=== PATIENT | male | born 1960 | race Caucasian/White ===

== ENCOUNTER → 2018-03-19 16:35 | Outpatient (CLI) | payer OTHER, SELFPAY ==
--- NOTE | 2018-03-19 17:28 | DI.RAD.S_ITS ---
PROCEDURE: XR CHEST 2V INDICATIONS: PRE OPERATIVE TECHNIQUE: 2 views of the chest were acquired. COMPARISON: None. FINDINGS: Surgical changes and devices: None. Lungs and pleura: No pleural effusions or pneumothorax. Lungs are clear. Mediastinum: Mediastinal contours are normal. Heart size is normal. Bones and chest wall: No suspicious bony abnormalities. Soft tissues appear unremarkable. IMPRESSION: Reduced inspiration, no acute disease. Surgical clips over the epigastrium from the past, no comparisons. Dictated by: Ky Davis M.D. on 03/20/2018 at 9:28 Approved by: Ky Davis M.D. on 03/20/2018 at 9:28
[2018-03-19 17:33] LABS: INR 1.4 (0.9-1.3)
[2018-03-19 18:04] LABS: Add Manual Diff / Slide Review NO; Basophils Percent Auto 0.7 % (0-2); Eosinophils Percent Auto 2.1 % (2-4); Hematocrit 36.5 % (41-53); Lymphocytes Percent Auto 40.7 % (25-40); Mean Corpuscular HGB Conc 32.9 % (30-36); Mean Corpuscular Hemoglobin 27.7 PG (26-34); Mean Corpuscular Volume 84.2 fL (80-100); Monocytes Percent Auto 9.1 % (3-14); Neutrophils Absolute Auto 4000 /uL (3000-5900); Neutrophils Percent Auto 47.4 % (50-75); Platelet Count 269 X10^3/uL (150-400); Red Blood Cell Count 4.34 X10^6/uL (4.5-5.9); White Blood Cell Count 8.4 X10^3/uL (4.5-11.0)
[2018-03-19 18:27] LABS: Alanine Aminotransferase 27 IU/L (21-72); Albumin 4.1 g/dL (3.5-5.0); Albumin Globulin Ratio 1.2 (1.0-2.8); Alkaline Phosphatase 73 U/L (38-126); Aspartate Aminotransferase 28 IU/L (17-59); BUN Creatinine Ratio 23.1 (6-22); Bilirubin Total 0.3 mg/dL (0.2-1.3); Blood Urea Nitrogen 30 mg/dL (9-20); Calcium 9.2 mg/dL (8.4-10.2); Carbon Dioxide 21 mmol/L (22-32); Chloride 108 mmol/L (98-107); Estimated Glomerular Filt Rate 56.7 mL/min (>60); Globulin 3.3 g/dL (1.7-4.1); Glucose 97 mg/dL (70-100); HEMOLYSIS < 15 (0-50); Potassium 4.6 mmol/L (3.4-5.1); Sodium 139 mmol/L (137-145); Total Protein 7.4 g/dL (6.3-8.2)
== END ==
PROVIDERS: Visit Provider Dentist Oral and Maxillofacial Surgery
DX: K50.819 Crohn's disease of both small and large intestine with unspecified complications (principal); E44.0 Moderate protein-calorie malnutrition; F43.0 Acute stress reaction; Z01.818 Encounter for other preprocedural examination
CPT/HCPCS: 36415; 71046; 80053; 85025; 85610; 93005

== ENCOUNTER 2018-03-25 06:13 | Day surgery (SDC) | payer OTHER, SELFPAY ==
[2018-03-20 12:16] VITALS: BMI 25.4
[2018-03-25] VITALS (11 sets, daily range): BP systolic 107–127; BP diastolic 60–81; PULSE 60–98; RESP 12–20; TEMP 36.4–37.5; O2SAT 94–100; BMI 24.7
[2018-03-25] MEDS: LACTATED RINGERS 1,000 ML 42 ML IV ×2 (06:45→09:51)
[2018-03-25] MEDS: OXYMETAZOLINE NASAL SPRAY 15 ML 2 SPRAYS NASAL ×2 (07:45→08:55)
[2018-03-25] MEDS: CEFAZOLIN 2 GM/100 ML FROZ.PIGGY IV (07:58)
[2018-03-25] MEDS: LIDOCAINE 2% W/EPI INJ 20 ML INJ (08:00)
[2018-03-25] MEDS: BUPIVACAINE 0.5% W/ EPI (PF) VIAL 30 ML INJ (08:00)
[2018-03-25] MEDS: ACETAMINOPHEN IV 1,000 MG/100 ML VIAL 400 MG IV (08:40)
--- NOTE | 2018-03-25 09:57 | SUR.OPER ---
Supine on padded OR bed, head on sona donut, arms tucked bilaterally, X1 pillow under knees, legs uncrossed, safety belt at thigh, tape over blanket over lower legs.
--- NOTE | 2018-03-25 11:34 | SUR.PHASEI ---
DR RUBIN IN TO SEE PT, GAUZE REMOVED FROM MOUTH, DENTURES PUT IN BY DR RUBIN, PT TOLERATING SIPS OF WATER
[2018-03-25] MEDS: fentaNYL 100 MCG/2 ML INJ 50 MCG IV (11:35)
[2018-03-25] MEDS: HYDROCODONE/ACET 5/325 TABLET 2 TAB PO (11:48)
--- NOTE | 2018-03-26 14:42 | OP_ITS ---
DATE OF SERVICE: 03/25/2018 PREOPERATIVE DIAGNOSES: 1. Missing teeth. 2. Recurrent caries and fractured teeth with history of pain and infection. POSTOPERATIVE DIAGNOSES: 1. Missing teeth. 2. Recurrent caries and fractured teeth with history of pain and infection. OPERATIVE PROCEDURES PERFORMED: 1. Placement of dental implants in the areas of teeth #13, #21, #24, and #28. 2. Alveolar bone reduction in the mandible to accommodate dental implants. 3. Extraction of all remaining teeth. SURGEON: Stanley Teague DMD ANESTHESIA: General anesthesia via oral endotracheal tube. ESTIMATED BLOOD LOSS: 100 cc. IV FLUIDS: 1 L lactated Ringer solution. INDICATIONS FOR OPERATIVE PROCEDURE: Oscar Leo is a 57-year-old male who presented to our office with failing teeth. He has had several missing teeth and, unfortunately, due to his severe Crohn disease and chronic use of oral steroid medications as well as immunosuppressant therapy, his teeth have continued to deteriorate and fail and cause him recurrent infections. He has had a very difficult time maintaining weight due to underlying gastrointestinal disease and the chronic pain from his teeth as he's had a very hard time with mastication of foods. He presented to my office upon referral of his dentist for further evaluation and treatment, and we determined an appropriate treatment plan would be to place dental implants and remove his remaining teeth. Oscar had dentures fabricated to assist him with the healing period before they can be attached to his dental implants. Consent was obtained to place dental implants and remove his remaining teeth was made. He would have dentures that would be retained by his implants to assist with mastication of foods and provide him with adequate function. DESCRIPTION OF OPERATIVE PROCEDURE: Oscar Leo was identified in the preoperative waiting area and brought to operating theater #1 at [facility]. He was placed in supine position on the operating room table. Intravenous medications were administered. The patient was intubated nasally without any complication. Attention was then directed at placing a throat pack. A throat pack was placed. Approximately 13 mL of 2% lidocaine with 1:100,000 epinephrine was administered as a bilateral inferior alveolar nerve block and infiltration to the buccal vestibula. After adequate anesthesia was obtained, attention was directed at using the implant guides to locate implant placement. Once this was done, the crowns were removed from the teeth. The implant osteotomies were initiated. Implant guides were then removed, and attention was then directed at extracting the remaining teeth. Attention first was placed along the maxillary arthroscopic, where teeth #2, #11, #12, #13, and #15 were extracted. It was felt the incision was made around the teeth. The teeth were luxated and removed. Surgical drill was used to remove residual root tips and then dissection of the teeth appropriately. The teeth were also removed using a periotome and a bone rongeur to remove bone as indicated. After the maxillary teeth were removed, the sites were curetted and rinsed out thoroughly. Attention was then directed at placing implant #13 . Using the Scott Active tapered implant protocol, osteotomies were initiated and completed in the area of #13 to depth of 13 mm. A 4.3 x 13-mm Scott Active implant was placed at a torque value greater than 35 Ncm. The implant was stable. A cover screw was then placed over the top of the implant. Attention was then directed at placing 3-0 chromic sutures to reapproximate soft tissue. Gelfoam was placed into the socket as well to protective signal installer helper in hemostasis. Attention was then directed at the mandible. Again, implant surgical guide was inserted. Initial osteotomies were started to locate where the implants would be placed. Attention was then directed at surgical incision around the remaining teeth. Remaining teeth #21, #22, #27, #28, and #30 were then removed. Using surgical bur, under copious irrigation, bone was removed adequately to allow removal of the teeth without disruption of the facial bone. The sockets were curetted and irrigated and suctioned dry. After the teeth were removed, the surgical implant guide was then inserted again and the implant osteotomies were initiated. Verification then of the mental nerve bilaterally was also made to prevent injury to the neurovascular bundle. Once this was verified, the implant osteotomies with the military pilot drill were completed to demarcate the location of the future implants. Now, using a reciprocating saw, under copious irrigation and with oval round bur and bone rongeur, alveolectomy was performed as well as removal of the buccal exostoses along the fascial aspect of the mandible. Using the oval bur and the saw, a malleable retractor and seldin retractor were used to help protect the soft tissues to minimize soft tissue trauma with these instruments. Approximately 6 mm of bone was removed with these instruments. Once this was done, then the implant osteotomies again were performed to the appropriate size and depth following the Scott Active protocol. These were all performed under copious irrigation. Attention was then directed at inserting dental implants. In the #24 location, a 3.5 x 13-mm implant was inserted. It was stable. A healing abutment was placed that was 3.6 x 5 mm in size. Attention was then directed to the implant osteotomies for teeth #21 and #28. Again, a 4.3 x 13-mm implant was placed in both of these locations. A healing abutment measuring 5 x 5 mm was placed in both these locations as well. All 3 implants of the mandibular were torque degree of greater than 35 Ncm. Prior to placing of the healing abutment, a bone union contract representative was used to remove any excess bone all around the edges of the implants. Once this was done, the sites were thoroughly irrigated and suctioned dry. The wound edges were then reapproximated using 3-0 Vicryl suture as well as 3-0 chromic gut sutures. The oral cavity was then thoroughly irrigated and suctioned dry. Approximately 7 mL of 0.5% bupivacaine with 1:200,000 epinephrine was administered to give bilateral inferior nerve blocks as well as infiltrated into the vestibule of the maxillary mandible. Once this was done, the maxillary mandibular dentures were tried in. The oral cavity was suctioned dry prior to extubation. The throat pack was removed. Patient was extubated. Oropharynx was suctioned dry. Patient was turned over to the anesthesiologist in stable condition and escorted to postanesthetic care unit. The dentures were then inserted back in the PACU. He will be sent home with them. Patient will be discharged home with his . Oscar Leo - PK/lucero/brandi doc#: [id number]/job#: [id number] dd: 03/25/2018 11:48:00 dt: 03/25/2018 13:23:00 DICTATING MD/COPIES TO: Stanley Teague DMD COPIES MNE: TERESITA
== END 2018-03-25 12:45 | disposition home or self-care (01) ==
PROVIDERS: Visit Provider Dentist Oral and Maxillofacial Surgery
PROC: (CPT 41899; principal; 2018-03-25 07:45)
DX: K08.2 Atrophy of edentulous alveolar ridge (principal); K02.53 Dental caries on pit and fissure surface penetrating into pulp; K50.90 Crohn's disease, unspecified, without complications; I10 Essential (primary) hypertension; G89.4 Chronic pain syndrome; R68.2 Dry mouth, unspecified
CPT/HCPCS: 21249; 41899; J0131; J0690; J1100; J2250; J2405; J2704; J3010

== ENCOUNTER → 2022-01-24 10:11 | Outpatient (CLI) | payer OTHER, SELFPAY ==
[2022-01-24 12:53] LABS: COVID19 -Nasal RAPID Negative (Negative)
== END ==
PROVIDERS: Visit Provider Surgery
DX: Z20.822 Contact with and (suspected) exposure to COVID-19 (principal); Z01.812 Encounter for preprocedural laboratory examination
CPT/HCPCS: 87635; C9803

== ENCOUNTER 2022-01-25 09:59 | Day surgery (SDC) | payer OTHER, SELFPAY ==
[2022-01-25 10:21] VITALS: BMI 24.3
[2022-01-25 10:34] VITALS: BP 134/82; PULSE 62; RESP 15; TEMP 36.9; O2SAT 97
[2022-01-25] MEDS: SODIUM CHLORIDE 0.9% 1,000 ML 84 ML IV (10:40)
--- NOTE | 2022-01-25 11:43 | PM.HP.1 ---
History of Present Illness History of Present Illness Date Patient Seen: 01/25/22 Chief complaint: SDC Narrative: History of Crohn's with primarily small bowel disease need for colorectal cancer screening. Patient History Medical History (Updated 03/20/18 @ 12:19 by Yue Boyer RN) Chronic pain Crohn disease History of anabolic steroid use Hypertension Xerostomia Surgical History (Updated 03/20/18 @ 12:31 by Yue Boyer RN) H/O submandibular gland removal History of appendectomy History of cholecystectomy History of resection of small bowel Family & Social History Social History: household members spouse Tobacco & Substance use: Smoking Status Never smoker alcohol intake never alcohol intake frequency other Substance Use Type does not use Meds Home Medications and Allergies Home Medications Medication Instructions Recorded Confirmed Type Flomax 1 tab DAILY 03/20/18 01/25/22 History fentanyl 50 mcg/hr transdermal 1 patch transdermal Q72H 03/20/18 01/25/22 History patch hydrocodone-acetaminophen 1 tab DAILY 03/20/18 01/25/22 History infliximab 100 mg intravenous 10 mg/kg IV 03/20/18 History solution (Remicade) potassium citrate 1 tab BID 03/20/18 01/25/22 History promethazine 1 tab DAILY 03/20/18 01/25/22 History quinapril 10 mg tablet 10 mg PO BID 03/20/18 01/25/22 History diphenoxylate-atropine 2.5 mg DAILY diarrhea 03/25/18 01/25/22 History Allergies Allergy/AdvReac Type Severity Reaction Status Date / Time morphine Allergy Severe Severe Verified 01/25/22 09:53 rash/hives prochlorperazine Allergy Severe Anaphylaxis Verified 01/25/22 09:53 [From Compazine] Exam Vital Signs (past 8 hours): - 01/25/22 10:34 Temperature 98.4 F Pulse Rate 62 Respiratory Rate 15 Blood Pressure 134/82 Pulse Oximetry 97 Oxygen Delivery Method Room Air Oxygen Delivery Method Room Air Narrative Exam Narrative: Oropharynx free lesions Chest clear to auscultation percussion Cardiac exam reveals no S3 murmur Assessment & Plan Assessment & Plan narrative: History of small-bowel Crohn's need for colorectal cancer screening. Risks, benefits, alternatives have been explained. Further recommendations will follow the results of that study Time Spent With Patient Critical Care time: I spent a total of [] minutes of critical care time on this patient's care today; this time is exclusive of procedural time.
--- NOTE | 2022-01-25 11:44 | PM.OP.COLON ---
Operative Date/Time/Diagnoses Date of procedure: 01/25/22 Pre-op diagnosis: See indication and findings Procedure & Clinicians Study performed: Colonoscopy Indications: Colorectal cancer Surgeon: Dai Landin Procedure Notes Procedure in detail: After informed consent was obtained the patient was placed in left lateral decubitus position. The video colonoscope was introduced the rectum slowly advanced. The goal was to reach the cecum. He has had multiple abdominal surgeries however and there is a huge amount of looping is of this capacious colon. It could now always be controlled. I believe the we were able to reach just above the IC valve to though is a little bit difficult to tell from landmarks. At least 3 passes were made into the right colon. On withdrawal mucosa appeared entirely normal. The scope was removed. The patient the procedure well. Blood loss none Complications none Sedation MAC Findings 1. Completely normal colon to at least mid right colon. Very capacious and huge loops. Consider not repeating for 5 years. or do a virtual colonoscopy
[2022-01-25 11:45] VITALS: BP 113/68; PULSE 55; RESP 15; TEMP 36.3; O2SAT 99
[2022-01-25 11:50] VITALS: BP 111/79; PULSE 59; RESP 14; O2SAT 98
[2022-01-25 11:55] VITALS: BP 107/81; PULSE 64; RESP 17; O2SAT 98
[2022-01-25 11:59] VITALS: BP 130/75; PULSE 66; RESP 13; O2SAT 98
[2022-01-25 12:02] VITALS: BP 135/82; PULSE 52; RESP 15; O2SAT 98
== END 2022-01-25 12:09 | disposition home or self-care (01) ==
PROVIDERS: PCP Family Medicine; Referring Provider Internal Medicine Gastroenterology; Visit Provider Internal Medicine Gastroenterology
PROC: 0DJD8ZZ Inspection of Lower Intestinal Tract, Via Natural or Artificial Opening Endoscopic (ICD-10-PCS; CPT 45378; principal; 2022-01-25 11:00)
DX: Z12.11 Encounter for screening for malignant neoplasm of colon (principal); Z87.19 Personal history of other diseases of the digestive system
CPT/HCPCS: 45378; J2704

== ENCOUNTER 2022-09-06 08:40 | Day surgery (SDC) | payer OTHER, SELFPAY ==
--- NOTE | 2022-09-06 | PATH_ITS ---
[facility] Accession Number: [id number] No. of containers..01 Tissue . 01 Material submitted: . esophagus - ESOPHAGEAL BIOPSIES . 01 Diagnosis: Esophagus, Biopsies: Active esophagitis with yeast and invasive pseudohyphae, consistent with Mary Grace esophagitis. Negative for dysplasia and malignancy. MRV 09/08/2022 1350 Local . 01 Electronically signed: . Brenda Fonseca MD, Pathologist NPI- [id number] . 01 Gross description: . ESOPHAGEAL BIOPSIES: Received in formalin are 4 fragment(s) of szymanski, soft tissue measuring 0.2 x 0.1 x 0.1 cm to 0.1 x 0.1 x 0.1 cm submitted entirely in 1 cassette(s) /CPE 09/07/2022 0847 Local . 01 Pathologist provided ICD-10: R13.10, B37.81 . 01 CPT . 878189 Specimen Comment: A courtesy copy of this report has been sent to [phone] Performed at: 01 [facility] [address] [place] [address], [place], [place] [id number] MD Fernie Javier MD Phone: [phone]
[2022-09-06 09:13] VITALS: BP 135/77; PULSE 62; RESP 18; TEMP 36.2; O2SAT 99; BMI 25.9
[2022-09-06] MEDS: LACTATED RINGERS 1,000 ML 42 ML IV ×2 (09:25→11:02)
--- NOTE | 2022-09-06 09:37 | PM.OP.EGD ---
Operative Date/Time/Diagnoses Date of procedure: 09/06/22 Pre-op diagnosis: See indication and findings Procedure & Clinicians Study performed: EGD Indications: Dysphagia Surgeon: Dai Landin Procedure Notes Procedure in detail: After informed consent was obtained the patient was placed in left lateral decubitus position. The video upper scope was placed into the oropharynx and with the patient's help swelled into the esophagus. The esophagus stomach and duodenum were carefully examined. On withdrawal, retroflexed view the GE junction was performed. The scope was removed. The patient tolerated procedure well. Blood loss none Complications none Sedation mac Findings 1. Extensive acosta esophageal white exudate consistent with candidiasis. 2. Mild distal esophageal rings. Biopsies taken to rule out eosinophilic esophagitis. This is in the midst of mild erythema. No significant luminal impingement 3. Normal proximal stomach with distal gastrointestinal anastomosis. I suspect that Oscar's dysphagia is from his Mary Grace. We will treat him and see how he does. Also await biopsies to rule out any other process such as eosinophilic esophagitis.
--- NOTE | 2022-09-06 09:38 | PM.HP.1 ---
History of Present Illness History of Present Illness Date Patient Seen: 09/06/22 Chief complaint: SDC Narrative: Worsening dysphagia Patient History Medical History (Updated 03/20/18 @ 12:19 by Yue Boyer RN) Chronic pain Crohn disease History of anabolic steroid use Hypertension Xerostomia Surgical History (Updated 03/20/18 @ 12:31 by Yue Boyer RN) H/O submandibular gland removal History of appendectomy History of cholecystectomy History of resection of small bowel Family & Social History Social History: household members spouse Tobacco & Substance use: Smoking Status Never smoker alcohol intake never alcohol intake frequency other Substance Use Type does not use Meds Home Medications and Allergies Home Medications Medication Instructions Recorded Confirmed Type fentanyl 50 mcg/hr transdermal 1 patch transdermal Q72H 03/20/18 09/06/22 History patch hydrocodone-acetaminophen 1 tab DAILY 03/20/18 09/06/22 History infliximab 100 mg intravenous 10 mg/kg IV DIRECTED 03/20/18 09/06/22 History solution (Remicade) potassium citrate 1 tab PO BID 03/20/18 09/06/22 History promethazine 1 tab PRN PRN Nausea 03/20/18 09/06/22 History quinapril 10 mg tablet 5 mg PO DAILY 03/20/18 09/06/22 History diphenoxylate-atropine 2.5 mg DAILY diarrhea 03/25/18 09/06/22 History Allergies Allergy/AdvReac Type Severity Reaction Status Date / Time morphine Allergy Severe Severe Verified 09/06/22 09:03 rash/hives prochlorperazine Allergy Severe Anaphylaxis Verified 09/06/22 09:03 [From Compazine] Exam Vital Signs (past 8 hours): - 09/06/22 09:13 Temperature 97.1 F L Pulse Rate 62 Respiratory Rate 18 Blood Pressure 135/77 Pulse Oximetry 99 Oxygen Delivery Method Room Air Oxygen Flow Rate 0 Oxygen Delivery Method Room Air Oxygen Flow Rate 0 Narrative Exam Narrative: Oropharynx free of lesions Chest clear to auscultation percussion Cardiac exam reveals no S3 or murmur Assessment & Plan Assessment & Plan narrative: Worsening dysphagia at the suprasternal notch. Need for EGD and possible dilation. Risks, benefits, alternatives have been explained.
[2022-09-06 10:52] VITALS: BP 117/82; PULSE 63; RESP 13; TEMP 36.7; O2SAT 97
[2022-09-06 10:57] VITALS: BP 118/83; PULSE 58; RESP 11; O2SAT 97
--- NOTE | 2022-09-06 10:59 | SUR.PHASEI ---
Patient reported nausea. Stated ondanzetron does not work but promethazine does. Dr. Tolbert notified and medication ordered.
[2022-09-06 11:02] VITALS: BP 125/80; PULSE 56; RESP 16; O2SAT 97
[2022-09-06 11:05] VITALS: BP 131/85; PULSE 60; RESP 12; TEMP 37.1; O2SAT 98
[2022-09-06] MEDS: PROMETHAZINE 25 MG TABLET 12.5 MG PO (11:20)
== END 2022-09-06 11:20 | disposition home or self-care (01) ==
PROVIDERS: PCP Family Medicine; Referring Provider Internal Medicine Gastroenterology; Visit Provider Internal Medicine Gastroenterology
PROC: 0DJ08ZZ Inspection of Upper Intestinal Tract, Via Natural or Artificial Opening Endoscopic (ICD-10-PCS; CPT 43235; principal; 2022-09-06 10:00)
DX: K20.80 Other esophagitis without bleeding (principal)
CPT/HCPCS: 43239; J2704

== ENCOUNTER 2022-11-01 12:51 | Day surgery (SDC) | payer OTHER, SELFPAY ==
--- NOTE | 2022-11-01 | PATH_ITS ---
[facility] Accession Number: [id number] No. of containers..01 Tissue . 01 Material submitted: . esophagus - ESOPHAGEAL BIOPSY . 01 Clinical history: . RULE OUT EOE / SEBASTIAN . 01 Diagnosis: Esophagus, Biopsy: Ulcerated squamous mucosa. A PAS stain is negative for fungal organisms. No obvious viral cytopathic effects identified on H/E stain. Intraepithelial eosinophils are not increased. Negative for dysplasia and malignancy. MRV 11/09/2022 1808 Local . 01 Electronically signed: . Brenda Fonseca MD, Pathologist NPI- [id number] . 01 Gross description: . ESOPHAGEAL BIOPSY: Received in formalin are multiple fragment(s) of szymanski, soft tissue measuring 0.1 x 0.1 x 0.1 cm to 0.3 x 0.2 x 0.2 cm submitted entirely in 1 cassette(s) /NARCISA 11/02/2022 2331 Local . 01 Microscopic: . An AB/PAS stain is performed to evaluate for fungal organisms and is negative. The control stain showed appropriate reactivity. . 01 Pathologist provided ICD-10: R13.10 . 01 CPT . 461032, 000086 Specimen Comment: A courtesy copy of this report has been sent to [phone] Performed at: 01 [facility] [address] [place] [address] [address], [place], [place] [id number] MD Fernie Javier MD Phone: [phone]
--- NOTE | 2022-11-01 13:24 | PM.HP.1 ---
History of Present Illness History of Present Illness Date Patient Seen: 11/01/22 Chief complaint: SDC Narrative: Recurrent dysphagia PFSH Medical History (Updated 03/20/18 @ 12:19 by Yue Boyer, RN) Chronic pain Crohn disease History of anabolic steroid use Hypertension Xerostomia Surgical History (Updated 03/20/18 @ 12:31 by Yue Boyer, RN) H/O submandibular gland removal History of appendectomy History of cholecystectomy History of resection of small bowel Social History household members: spouse Smoking Status: Never smoker alcohol intake: never Meds Home Medications and Allergies Home Medications Medication Instructions Recorded Confirmed Type fentanyl 50 mcg/hr transdermal 1 patch transdermal Q72H 03/20/18 09/06/22 History patch hydrocodone-acetaminophen 1 tab DAILY 03/20/18 09/06/22 History infliximab 100 mg intravenous 10 mg/kg IV DIRECTED 03/20/18 09/06/22 History solution (Remicade) potassium citrate 1 tab PO BID 03/20/18 09/06/22 History promethazine 1 tab PRN PRN Nausea 03/20/18 09/06/22 History quinapril 10 mg tablet 5 mg PO DAILY 03/20/18 09/06/22 History diphenoxylate-atropine 2.5 mg DAILY diarrhea 03/25/18 09/06/22 History Allergies Allergy/AdvReac Type Severity Reaction Status Date / Time morphine Allergy Severe Severe Verified 09/06/22 09:03 rash/hives prochlorperazine Allergy Severe Anaphylaxis Verified 09/06/22 09:03 [From Compazine] Exam Narrative Exam Narrative: Oropharynx free of lesions Chest clear to auscultation percussion Cardiac exam reveals no S3 or murmur Assessment & Plan Assessment & Plan narrative: Recurrent dysphagia need for repeat dilation. Risks, benefits, alternatives have been explained.
--- NOTE | 2022-11-01 13:25 | PM.OP.EGD ---
Operative Date/Time/Diagnoses Date of procedure: 11/01/22 Pre-op diagnosis: See indication and findings Procedure & Clinicians Study performed: EGD with dilation Indications: Recurrent dysphagia Surgeon: Dai Landin Procedure Notes Procedure in detail: After informed consent was obtained the patient was placed in left lateral decubitus position. The video upper scope was placed into the oropharynx and with the patient's help swallowed into the esophagus. Esophagus stomach and duodenum were carefully examined. On withdrawal, retroflexed view the GE junction was performed. The scope was removed. The patient tolerated procedure well. Blood loss none Complications none Sedation mac Findings 1. scattered mild white exudate the entire esophagus - biopsied 2. mild mucosal rings the entire esophagus - biopsied 3. Status post partial gastric resection Oscar improved after antifungals last EGD about a month ago. Biopsies were negative for eosinophilic esophagitis. At the current time however the rings are much more prominent than any exudate. I think we need to have results of pathology back 1st before suggesting which direction to treat him.
[2022-11-01 13:38] VITALS: BP 144/78; PULSE 59; RESP 17; TEMP 35.9; O2SAT 98; BMI 25.1
[2022-11-01] MEDS: LACTATED RINGERS 1,000 ML 42 ML IV (13:57)
[2022-11-01 15:06] VITALS: BP 109/74; PULSE 65; RESP 14; TEMP 36.4; O2SAT 96
[2022-11-01 15:12] VITALS: BP 112/82; PULSE 70; RESP 20; TEMP 36.5; O2SAT 96
[2022-11-01 15:17] VITALS: BP 113/81; PULSE 67; RESP 20; TEMP 36.7; O2SAT 96
[2022-11-01 15:27] VITALS: BP 117/86; PULSE 64; RESP 20; TEMP 36.7; O2SAT 97
== END 2022-11-01 15:34 | disposition home or self-care (01) ==
PROVIDERS: PCP Family Medicine; Referring Provider Internal Medicine Gastroenterology; Visit Provider Internal Medicine Gastroenterology
PROC: 0DJ08ZZ Inspection of Upper Intestinal Tract, Via Natural or Artificial Opening Endoscopic (ICD-10-PCS; CPT 43235; principal; 2022-11-01 14:00)
DX: K22.10 Ulcer of esophagus without bleeding (principal)
CPT/HCPCS: 43239; J2704